=== PATIENT | male | born 1970 | race Caucasian/White ===

== ENCOUNTER 2016-06-30 09:34 | Emergency (ER) | payer MEDICAID ==
[~2016-06-30] VITALS: Ht 170.2 cm; Wt 117.3 kg
[~2016-06-30 09:34] MED LIST: EFFEXOR XR75 MG/CAP PO; MULTIPLE VITAMI1 CAP PO; XANAX2 MG PO; ZANTAC 150MG T150 MG PO
[2016-06-30 09:38] VITALS: BP 148/109; TEMP 98.7
[2016-06-30] MEDS ORDERED: AMOXICILLIN 8751 TAB PO (10:34)
[2016-06-30 10:47] VITALS: PULSE 89
[2016-07-12] MEDS ORDERED: MULTI VITAMINS1 TAB PO (08:43)
[2016-07-12] MEDS ORDERED: ZANTAC 150MG T150 MG PO (08:43)
== END 2016-06-30 10:47 | disposition home or self-care (01) ==
LOC: COL.ER 09:34
DX: S61.052A Open bite of left thumb without damage to nail, initial encounter (principal); W54.0XXA Bitten by dog, initial encounter; Z23 Encounter for immunization

== ENCOUNTER 2016-07-09 09:46 | Emergency (ER) | payer MEDICAID ==
[~2016-07-09] VITALS: Ht 170.2 cm; Wt 110.6 kg
[~2016-07-09 09:46] MED LIST changes: +AMOXICILLIN 8751 TAB PO
[2016-07-09 09:47] VITALS: BP 156/110; TEMP 97.9
[2016-07-09 12:10] VITALS: PULSE 68
[2016-07-12] MEDS ORDERED: MULTI VITAMINS1 TAB PO (08:43)
[2016-07-12] MEDS ORDERED: ZANTAC 150MG T150 MG PO (08:43)
== END 2016-07-09 12:12 | disposition home or self-care (01) ==
LOC: COL.ER 09:46
DX: Z23 Encounter for immunization (principal); Z20.3 Contact with and (suspected) exposure to rabies

== ENCOUNTER 2016-07-23 08:38 | Outpatient (RCR) | payer MEDICAID ==
[~2016-07-23] VITALS: Ht 170.2 cm; Wt 110.5 kg
[~2016-07-23 08:38] MED LIST changes: +MULTI VITAMINS1 TAB PO
[2016-07-23 08:50] VITALS: BP 162/93; PULSE 86; TEMP 98.2
== END 2016-10-10 | disposition still patient (30) ==
LOC: COL.ER
DX: Z23 Encounter for immunization (principal)

== ENCOUNTER 2017-06-08 23:57 | Emergency (ER) | payer MEDICAID ==
[~2017-06-08] VITALS: Ht 170.2 cm; Wt 111.4 kg
[2017-06-09 00:02] VITALS: BP 172/113; PULSE 122; TEMP 99.4
[2017-06-09] MEDS ORDERED: XANAX 1MG1 MG PO (00:06)
[2017-06-09] MEDS ORDERED: EFFEXOR-XR150 MG PO (00:06)
[2017-06-09 00:31] LABS: BASO % 0.6 % (0.0-2.0); EOS # 0.1 (0.0-0.7); EOS % 1.3 % (0-4.0); GRAN # 4.2 (1.4-6.5); GRAN % 62.3 % (42.2-75.2); HEMATOCRIT 49.2 % (42.0-52.0); HEMOGLOBIN 17.8 g/dl (13.5-18.0); LYMPH # 1.9 (1.2-3.4); LYMPH % 27.8 % (20.0-51.0); MEAN CELL VOLUME 93 fl (80.0-100.0); MEAN CORPUSCULAR HEMOGLOBIN 34 pg (27.0-31.0); MEAN CORPUSCULAR HGB CONC 36 g/dl (33.0-37.0); MEAN PLATELET VOLUME 10.6 fl (7.4-10.4); MONO # 0.5 (0.1-0.6); MONO % 7.7 % (1.7-9.3); PLATELET COUNT 181 K/mm3 (130-400); RED BLOOD COUNT 5.27 M/mm3 (4.20-5.60); REDCELL DISTRIBUTION WIDTH-CV 11.9 % (11.5-14.5)
== END 2017-06-09 01:10 | disposition home or self-care (01) ==
LOC: COL.ER 23:57
PROVIDERS: Emergency Medicine
DX: M25.571 Pain in right ankle and joints of right foot (principal); F17.210 Nicotine dependence, cigarettes, uncomplicated; Z90.89 Acquired absence of other organs

== ENCOUNTER 2017-10-09 12:14 | Emergency (ER) | payer MEDICAID ==
[~2017-10-09] VITALS: Ht 170.2 cm; Wt 103.2 kg
[~2017-10-09 12:14] MED LIST changes: +EFFEXOR-XR150 MG PO; +XANAX 1MG1 MG PO
[2017-10-09 12:17] VITALS: TEMP 98.5
[2017-10-09 13:00] LABS: MUCOUS Present /lpf; PH 6 (5-8); SQUAMOUS EPITHELIAL None Seen /hpf; URINE APPEARANCE Clear; URINE BACTERIA None Seen /hpf; URINE BILIRUBIN Negative (NEGATIVE); URINE BLOOD Negative (NEGATIVE); URINE COLOR Straw; URINE GLUCOSE Negative (NEGATIVE); URINE KETONE Negative (NEGATIVE); URINE LEUKOCYTE ESTERASE Negative (NEGATIVE); URINE NITRATE Negative (NEGATIVE); URINE PROTEIN(semi-quant) Negative (NEGATIVE); URINE RBC 0-2 /hpf; URINE UROBILINOGEN Negative (NEGATIVE); URINE WBC 0-2 /hpf
[2017-10-09 13:04] LABS: BASO % 0.7 % (0.0-2.0); EOS # 0.1 (0.0-0.7); EOS % 1.1 % (0-4.0); GRAN # 2.7 (1.4-6.5); GRAN % 62.2 % (42.2-75.2); HEMATOCRIT 43.9 % (42.0-52.0); HEMOGLOBIN 15.9 g/dl (13.5-18.0); LYMPH # 1.1 (1.2-3.4); MEAN CELL VOLUME 92 fl (80.0-100.0); MEAN CORPUSCULAR HEMOGLOBIN 34 pg (27.0-31.0); MEAN CORPUSCULAR HGB CONC 36 g/dl (33.0-37.0); MEAN PLATELET VOLUME 10.7 fl (7.4-10.4); MONO # 0.5 (0.1-0.6); MONO % 10.5 % (1.7-9.3); PLATELET COUNT 159 K/mm3 (130-400); RED BLOOD COUNT 4.75 M/mm3 (4.20-5.60); REDCELL DISTRIBUTION WIDTH-CV 11.2 % (11.5-14.5)
[2017-10-09 13:05] LABS: COLLECTION METHOD CLEAN CATCH
[2017-10-09 13:13] LABS: ALANINE AMINOTRANSFERASE 107 U/L (21-72); ALBUMIN 4.1 gm/dL (3.5-5.0); ALKALINE PHOSPHATASE 84 U/L (50-136); ANION GAP 11 mmol/L (7-16); AST,SGOT 102 U/L (15-37); BILIRUBIN,TOTAL 0.7 mg/dL (0.0-1.0); BLOOD UREA NITROGEN 5 mg/dL (9-20); CALCIUM 9.3 mg/dL (8.4-10.2); CARBON DIOXIDE 25 mmol/L (22-30); CHLORIDE 102 mmol/L (98-107); CREATININE, serum 0.69 mg/dL (0.66-1.25); GLUCOSE 105 mg/dL (74-106); POTASSIUM 4.1 mmol/L (3.4-5.0); SODIUM 138 mmol/L (137-145); TOTAL PROTEIN 8.6 gm/dL (6.4-8.2)
[2017-10-09] MEDS ORDERED: GLUCOPHAGE500 MG/TAB PO (13:24)
[2017-10-09] MEDS ORDERED: MULTI VITAMINS1 TAB PO (13:24)
[2017-10-09] MEDS ORDERED: ZANTAC 150MG T150 MG PO (13:24)
[2017-10-09 13:28] LABS: TROPONIN-I < 0.012 ng/mL (0.000-0.034)
[2017-10-09] MEDS ORDERED: FREESTYLE PREC1 EAC5 MC (14:38)
[2017-10-09] MEDS ORDERED: GLUCOSE TEST ST1 DEV MC (14:38)
[2017-10-09 14:47] VITALS: BP 148/101; PULSE 81
== END 2017-10-09 14:49 | disposition home or self-care (01) ==
LOC: COL.ER 12:14
PROVIDERS: Emergency Medicine
DX: I95.1 Orthostatic hypotension (principal); E11.9 Type 2 diabetes mellitus without complications; F41.9 Anxiety disorder, unspecified; F43.10 Post-traumatic stress disorder, unspecified; F17.210 Nicotine dependence, cigarettes, uncomplicated; Z79.84 Long term (current) use of oral hypoglycemic drugs
CPT/HCPCS: J7030

== ENCOUNTER 2017-10-29 10:53 | Emergency (ER) | payer MEDICAID ==
[~2017-10-29] VITALS: Ht 170.2 cm; Wt 103.2 kg
[~2017-10-29 10:53] MED LIST changes: +FREESTYLE PREC1 EAC5 MC; +GLUCOPHAGE500 MG/TAB PO; +GLUCOSE TEST ST1 DEV MC
[2017-10-29] MEDS ORDERED: NORCO 325 MG-51 TAB PO (11:19)
[2017-10-29] MEDS ORDERED: GLUCOSE TEST ST1 DEV MC (11:19)
[2017-10-29] MEDS ORDERED: CLEOCIN HCL300 MG PO (11:19)
[2017-10-29 11:51] VITALS: BP 147/97; PULSE 92; TEMP 99
== END 2017-10-29 11:51 | disposition home or self-care (01) ==
LOC: COL.ER 10:53
DX: K02.9 Dental caries, unspecified (principal); E11.9 Type 2 diabetes mellitus without complications; F31.9 Bipolar disorder, unspecified; Z79.84 Long term (current) use of oral hypoglycemic drugs

== ENCOUNTER 2018-03-06 12:46 | Emergency (ER) | payer MEDICAID ==
[~2018-03-06] VITALS: Ht 170.2 cm; Wt 100.0 kg
[~2018-03-06 12:46] MED LIST changes: +CLEOCIN HCL300 MG PO; +NORCO 325 MG-51 TAB PO
[2018-03-06 13:00] VITALS: TEMP 98
[2018-03-06] MEDS ORDERED: ZITHROMAX 250M250 MG PO (14:17)
[2018-03-06] MEDS ORDERED: PREDNISONE20 MG PO (14:17)
[2018-03-06 14:54] VITALS: BP 129/91; PULSE 98
== END 2018-03-06 14:55 | disposition home or self-care (01) ==
LOC: COL.ER 12:46
DX: J45.909 Unspecified asthma, uncomplicated (principal); E11.9 Type 2 diabetes mellitus without complications; F17.210 Nicotine dependence, cigarettes, uncomplicated; K21.9 Gastro-esophageal reflux disease without esophagitis; I10 Essential (primary) hypertension; Z79.84 Long term (current) use of oral hypoglycemic drugs
CPT/HCPCS: J7512

== ENCOUNTER 2018-03-12 09:53 | Emergency (ER) | payer MEDICAID ==
[~2018-03-12] VITALS: Ht 170.2 cm; Wt 100.5 kg
[~2018-03-12 09:53] MED LIST changes: +PREDNISONE20 MG PO; +ZITHROMAX 250M250 MG PO
[2018-03-12 09:55] VITALS: TEMP 97.8
[2018-03-12 10:47] LABS: BASO % 0.7 % (0.0-2.0); EOS # 0.1 (0.0-0.7); EOS % 1.2 % (0-4.0); GRAN # 3.2 (1.4-6.5); GRAN % 56.8 % (42.2-75.2); HEMATOCRIT 49.8 % (42.0-52.0); HEMOGLOBIN 17.8 g/dl (13.5-18.0); LYMPH # 1.8 (1.2-3.4); LYMPH % 31.4 % (20.0-51.0); MEAN CELL VOLUME 91 fl (80.0-100.0); MEAN CORPUSCULAR HEMOGLOBIN 33 pg (27.0-31.0); MEAN CORPUSCULAR HGB CONC 36 g/dl (33.0-37.0); MEAN PLATELET VOLUME 10.5 fl (7.4-10.4); MONO # 0.5 (0.1-0.6); PLATELET COUNT 190 K/mm3 (130-400); RED BLOOD COUNT 5.46 M/mm3 (4.20-5.60); REDCELL DISTRIBUTION WIDTH-CV 11.8 % (11.5-14.5)
[2018-03-12 11:03] LABS: ALANINE AMINOTRANSFERASE 66 U/L (21-72); ALBUMIN 4.3 gm/dL (3.5-5.0); ALKALINE PHOSPHATASE 83 U/L (50-136); ANION GAP 6 mmol/L (7-16); AST,SGOT 43 U/L (15-37); BILIRUBIN,TOTAL 0.6 mg/dL (0.0-1.0); BLOOD UREA NITROGEN 16 mg/dL (9-20); CALCIUM 9.2 mg/dL (8.4-10.2); CARBON DIOXIDE 31 mmol/L (22-30); CHLORIDE 103 mmol/L (98-107); CREATININE, serum 0.68 mg/dL (0.66-1.25); GLUCOSE 131 mg/dL (74-106); LIPASE 440 U/L (23-300); POTASSIUM 4.2 mmol/L (3.4-5.0); SODIUM 140 mmol/L (137-145); TOTAL PROTEIN 8.5 gm/dL (6.4-8.2)
[2018-03-12] MEDS ORDERED: PREDNISONE20 MG PO (11:12)
[2018-03-12] MEDS ORDERED: DOXYCYCLINE 10100 MG PO (11:12)
[2018-03-12] MEDS ORDERED: PROAIR HFA0.09 MG/AC IH (11:12)
[2018-03-12 11:15] LABS: TROPONIN-I < 0.012 ng/mL (0.000-0.034)
[2018-03-12 13:25] VITALS: BP 132/83; PULSE 95
== END 2018-03-12 13:25 | disposition home or self-care (01) ==
LOC: COL.ER 09:53
PROVIDERS: Emergency Medicine
DX: J20.9 Acute bronchitis, unspecified (principal); E11.9 Type 2 diabetes mellitus without complications; F17.210 Nicotine dependence, cigarettes, uncomplicated; Z79.84 Long term (current) use of oral hypoglycemic drugs
CPT/HCPCS: J1885; J7030

== ENCOUNTER 2018-10-28 18:51 | Emergency (ER) | payer MEDICAID ==
[~2018-10-28] VITALS: Ht 170.2 cm; Wt 111.4 kg
[~2018-10-28 18:51] MED LIST changes: +DOXYCYCLINE 10100 MG PO; +PROAIR HFA0.09 MG/AC IH
[2018-10-28 19:05] VITALS: BP 148/106; TEMP 97.2
[2018-10-28] MEDS ORDERED: PRINIVIL5 MG PO (19:14)
[2018-10-28 19:53] LABS: BASO % 0.7 % (0.0-2.0); EOS # 0.1 (0.0-0.7); GRAN # 1.9 (1.4-6.5); GRAN % 43.1 % (42.2-75.2); HEMATOCRIT 45.2 % (42.0-52.0); HEMOGLOBIN 16.5 g/dl (13.5-18.0); LYMPH # 1.9 (1.2-3.4); LYMPH % 41.5 % (20.0-51.0); MEAN CELL VOLUME 91 fl (80.0-100.0); MEAN CORPUSCULAR HEMOGLOBIN 33 pg (27.0-31.0); MEAN CORPUSCULAR HGB CONC 37 g/dl (33.0-37.0); MEAN PLATELET VOLUME 10.5 fl (7.4-10.4); MONO # 0.6 (0.1-0.6); MONO % 12.5 % (1.7-9.3); PLATELET COUNT 126 K/mm3 (130-400); RED BLOOD COUNT 4.96 M/mm3 (4.20-5.60); REDCELL DISTRIBUTION WIDTH-CV 11.3 % (11.5-14.5)
[2018-10-28 20:22] LABS: ALBUMIN 4.3 gm/dL (3.5-5.0); BILIRUBIN,TOTAL 0.5 mg/dL (0.0-1.0); CALCIUM 9.3 mg/dL (8.4-10.2); CREATININE, serum 0.72 (0.66-1.25); POTASSIUM 4.1 mmol/L (3.4-5.0); TOTAL PROTEIN 8.1 gm/dL (6.4-8.2)
[2018-10-28 21:05] VITALS: PULSE 78
== END 2018-10-28 21:05 | disposition home or self-care (01) ==
LOC: COL.ER 18:51
PROVIDERS: Emergency Medicine
DX: T20.10XA Burn of first degree of head, face, and neck, unspecified site, initial encounter (principal); T54.2X1A Toxic effect of corrosive acids and acid-like substances, accidental (unintentional), initial encounter; F17.210 Nicotine dependence, cigarettes, uncomplicated; I10 Essential (primary) hypertension; E11.9 Type 2 diabetes mellitus without complications; F31.9 Bipolar disorder, unspecified; Z98.890 Other specified postprocedural states; Z79.84 Long term (current) use of oral hypoglycemic drugs
CPT/HCPCS: J7030

== ENCOUNTER 2018-11-26 08:51 | Emergency (ER) | payer MEDICAID ==
[~2018-11-26] VITALS: Ht 170.2 cm; Wt 107.7 kg
[~2018-11-26 08:51] MED LIST changes: +PRINIVIL5 MG PO
[2018-11-26 08:54] VITALS: PULSE 96; TEMP 98.7
[2018-11-26 09:23] LABS: BASO % 0.8 % (0.0-2.0); EOS # 0.1 (0.0-0.7); GRAN # 2.9 (1.4-6.5); GRAN % 55.8 % (42.2-75.2); HEMOGLOBIN 17.4 g/dl (13.5-18.0); LYMPH # 1.6 (1.2-3.4); LYMPH % 30.3 % (20.0-51.0); MEAN CELL VOLUME 92 fl (80.0-100.0); MEAN CORPUSCULAR HEMOGLOBIN 33 pg (27.0-31.0); MEAN CORPUSCULAR HGB CONC 36 g/dl (33.0-37.0); MEAN PLATELET VOLUME 10.5 fl (7.4-10.4); MONO # 0.6 (0.1-0.6); MONO % 11.9 % (1.7-9.3); PLATELET COUNT 148 K/mm3 (130-400); RED BLOOD COUNT 5.21 M/mm3 (4.20-5.60); REDCELL DISTRIBUTION WIDTH-CV 11.5 % (11.5-14.5)
[2018-11-26 09:31] LABS: COLLECTION METHOD CLEAN CATCH
[2018-11-26 09:38] LABS: ALBUMIN 4.5 gm/dL (3.5-5.0); BILIRUBIN,TOTAL 0.8 mg/dL (0.0-1.0); C-REACTIVE PROTEIN 0.6 mg/dL (0.0-0.9); CALCIUM 9.4 mg/dL (8.4-10.2); CREATININE, serum 0.63 (0.66-1.25); POTASSIUM 4.4 mmol/L (3.4-5.0); TOTAL PROTEIN 8.3 gm/dL (6.4-8.2)
[2018-11-26 09:40] LABS: PH 5 (5-8); SQUAMOUS EPITHELIAL None Seen /hpf; URINE APPEARANCE Clear; URINE BACTERIA None Seen /hpf; URINE BILIRUBIN Negative (NEGATIVE); URINE BLOOD Negative (NEGATIVE); URINE COLOR Yellow; URINE GLUCOSE Negative (NEGATIVE); URINE KETONE Negative (NEGATIVE); URINE LEUKOCYTE ESTERASE Negative (NEGATIVE); URINE NITRATE Negative (NEGATIVE); URINE PROTEIN(semi-quant) Negative (NEGATIVE); URINE RBC 0-2 /hpf; URINE UROBILINOGEN Negative (NEGATIVE)
[2018-11-26 11:30] VITALS: BP 147/107
== END 2018-11-26 11:39 | disposition home or self-care (01) ==
LOC: COL.ER 08:51
PROVIDERS: Nurse Practitioner
DX: R10.11 Right upper quadrant pain (principal); K21.9 Gastro-esophageal reflux disease without esophagitis; E11.9 Type 2 diabetes mellitus without complications; I10 Essential (primary) hypertension; F17.210 Nicotine dependence, cigarettes, uncomplicated; Z90.49 Acquired absence of other specified parts of digestive tract; Z79.84 Long term (current) use of oral hypoglycemic drugs

== ENCOUNTER 2019-10-13 07:16 | Emergency (ER) | payer MEDICAID ==
[~2019-10-13] VITALS: Ht 170.2 cm; Wt 109.1 kg
[2019-10-13 07:24] VITALS: TEMP 99
[2019-10-13] MEDS ORDERED: PRILOSEC 20MG20 MG PO (07:28)
[2019-10-13] MEDS ORDERED: GLUCOSAMINE 1000 PO (07:28)
[2019-10-13 08:29] LABS: BASO % 0.4 % (0.0-2.0); EOS # 0.1 (0.0-0.7); GRAN % 60.5 % (42.2-75.2); HEMATOCRIT 44.1 % (42.0-52.0); HEMOGLOBIN 15.6 g/dl (13.5-18.0); LYMPH # 1.4 (1.2-3.4); LYMPH % 27.7 % (20.0-51.0); MEAN CELL VOLUME 93 fl (80.0-100.0); MEAN CORPUSCULAR HEMOGLOBIN 33 pg (27.0-31.0); MEAN CORPUSCULAR HGB CONC 35 g/dl (33.0-37.0); MEAN PLATELET VOLUME 10.8 fl (7.4-10.4); MONO # 0.5 (0.1-0.6); MONO % 10.2 % (1.7-9.3); PLATELET COUNT 131 K/mm3 (130-400); RED BLOOD COUNT 4.76 M/mm3 (4.20-5.60); REDCELL DISTRIBUTION WIDTH-CV 11.3 % (11.5-14.5)
[2019-10-13 08:36] LABS: ALBUMIN 4.1 gm/dL (3.5-5.0); BILIRUBIN,TOTAL 0.6 mg/dL (0.0-1.0); C-REACTIVE PROTEIN 1.4 mg/dL (0.0-0.9); CALCIUM 8.9 mg/dL (8.4-10.2); CREATININE, serum 0.71 (0.66-1.25); URIC ACID 6.9 mg/dL (3.5-8.5)
[2019-10-13 08:44] VITALS: PULSE 91
[2019-10-13] MEDS ORDERED: NAPROSYN500 MG PO (08:44)
[2019-10-13 08:49] LABS: ERYTHROCYTE SEDIMENTATION RATE 6 mm/hr (0-15)
[2019-10-13 09:24] VITALS: BP 126/85
== END 2019-10-13 09:25 | disposition home or self-care (01) ==
LOC: COL.ER 07:16
PROVIDERS: Emergency Medicine
DX: M25.572 Pain in left ankle and joints of left foot (principal); M10.9 Gout, unspecified; E11.9 Type 2 diabetes mellitus without complications; F17.210 Nicotine dependence, cigarettes, uncomplicated; Z79.84 Long term (current) use of oral hypoglycemic drugs

== ENCOUNTER 2021-04-10 20:05 | Emergency (ER) | payer MEDICAID ==
[~2021-04-10] VITALS: Ht 170.2 cm; Wt 109.1 kg
[~2021-04-10 20:05] MED LIST changes: +GLUCOSAMINE 1000 PO; +NAPROSYN500 MG PO; +PRILOSEC 20MG20 MG PO
[2021-04-10 20:58] VITALS: BP 140/999; PULSE 89; TEMP 99.1
== END 2021-04-10 20:58 | disposition home or self-care (01) ==
LOC: COL.ER 20:05
DX: H16.133 Photokeratitis, bilateral (principal); E11.9 Type 2 diabetes mellitus without complications; Z79.84 Long term (current) use of oral hypoglycemic drugs

== ENCOUNTER 2021-12-06 15:42 | Emergency (ER) | payer MEDICAID ==
[~2021-12-06] VITALS: Ht 170.2 cm; Wt 102.3 kg
[2021-12-06 15:52] VITALS: TEMP 98.7
[2021-12-06 16:13] LABS: BASO # 0.1 K/mm3 (0.0-0.2); BASO % 0.5 % (0.0-2.0); EOS # 0.2 K/mm3 (0.0-0.7); EOS % 1.5 % (0.0-4.0); GRAN # 7.4 K/mm3 (1.4-6.5); GRAN % 67.7 % (42.2-75.2); HEMATOCRIT 48.4 % (42.0-52.0); HEMOGLOBIN 17.2 g/dl (13.5-18.0); LYMPH # 2.3 K/mm3 (1.2-3.4); LYMPH % 21.1 % (20.0-51.0); MEAN CELL VOLUME 92 fl (80.0-100.0); MEAN CORPUSCULAR HEMOGLOBIN 33 pg (27-31); MEAN CORPUSCULAR HGB CONC 36 g/dl (33.0-37.0); MEAN PLATELET VOLUME 10.8 fl (7.4-10.4); MONO % 8.9 % (1.7-9.3); PLATELET COUNT 167 K/mm3 (130-400); RED BLOOD COUNT 5.25 M/mm3 (4.20-5.60); REDCELL DISTRIBUTION WIDTH-CV 11.2 % (11.5-14.5)
[2021-12-06 16:30] LABS: ALANINE AMINOTRANSFERASE 32 U/L (0-55); ALBUMIN 4.1 gm/dL (3.5-5.0); ALKALINE PHOSPHATASE 81 U/L (40-150); ANION GAP 17 mmol/L (7-16); AST,SGOT 18 U/L (5-34); BILIRUBIN,TOTAL 0.4 mg/dL (0.2-1.2); BLOOD UREA NITROGEN 13 mg/dL (9-21); CALCIUM 9.2 mg/dL (8.4-10.2); CARBON DIOXIDE 17 mmol/L (22-29); CHLORIDE 101 mmol/L (98-107); CREATINE KINASE 53 U/L (30-200); CREATININE, serum 0.81 mg/dL (0.72-1.25); GLUCOSE 212 mg/dL (70-99); POTASSIUM 3.9 mmol/L (3.5-4.5); SODIUM 135 mmol/L (136-145); TOTAL PROTEIN 8.5 gm/dL (6.2-8.1)
[2021-12-06 16:39] LABS: TROPONIN-I < 0.010 ng/mL (0.00-0.033)
[2021-12-06] MEDS ORDERED: GLUCOPHAGE XR500 M1 PO (16:59)
[2021-12-06] MEDS ORDERED: JARDIANCE10 (17:01)
[2021-12-06] MEDS ORDERED: JARDIANCE10 PO (17:02)
[2021-12-06] MEDS ORDERED: JARDIANCE25 PO (17:02)
[2021-12-06] MEDS ORDERED: [UNRECOGNIZED DRUG - OTHER] PO (17:05)
[2021-12-06] MEDS ORDERED: MILK THISTLE500 M2 PO (17:05)
[2021-12-06] MEDS ORDERED: NUTRISOURCE FI205 GM PO (17:06)
[2021-12-06] MEDS ORDERED: BITTER MELON PO (17:07)
[2021-12-06] MEDS ORDERED: ELDERBERRY PO (17:13)
[2021-12-06] MEDS ORDERED: MULTIVITAMIN PO (17:14)
[2021-12-06] MEDS ORDERED: TUMERIC PO (17:15)
[2021-12-06] MEDS ORDERED: [UNRECOGNIZED DRUG - OTHER] PO (17:17)
[2021-12-06] MEDS ORDERED: [UNRECOGNIZED DRUG - OTHER] PO (17:18)
[2021-12-06] MEDS ORDERED: CBD PO (17:18)
[2021-12-06] MEDS ORDERED: STRESS PO (17:18)
[2021-12-06] MEDS ORDERED: CARAFATE 1GM1 G PO ×3 (18:55→19:16)
[2021-12-06] MEDS ORDERED: ATIVAN 0.50.5 MG/TAB PO ×3 (18:55→19:16)
[2021-12-06 19:17] VITALS: BP 116/69; PULSE 104
== END 2021-12-06 19:21 | disposition home or self-care (01) ==
LOC: COL.ER 15:42
PROVIDERS: Emergency Medicine
DX: K29.70 Gastritis, unspecified, without bleeding (principal); R07.89 Other chest pain; F17.200 Nicotine dependence, unspecified, uncomplicated; Z79.899 Other long term (current) drug therapy; Z86.59 Personal history of other mental and behavioral disorders; Z28.310 Unvaccinated for COVID-19
CPT/HCPCS: J2060; J7030